=== PATIENT | female | born 1990 | race Caucasian/White ===

== ENCOUNTER 2016-11-12 18:27 | Emergency (ER) | payer BC, OTHER ==
[2016-11-12 19:35] VITALS: RESP 18
[2016-11-12] MEDS ORDERED: IPRATROPIUM-ALBUTEROL 3 ML NEB INHALATION STA (19:45)
[2016-11-12] MEDS ORDERED: ONDANSETRON 4 MG/2 ML VIAL IVP STA (19:46)
[2016-11-12] MEDS ORDERED: SODIUM CHLORIDE 0.9% 1,000 ML IV ONE (19:47)
[2016-11-12] MEDS ORDERED: KETOROLAC 30 MG/ML 1 ML VIAL IVP STA (19:53)
--- NOTE | 2016-11-12 19:53 | ED ---
URI HPI - General Chief Complaint: Upper Respiratory Infection Stated Complaint: cough, nausea, dizziness Time Seen by Provider: 11/12/16 19:35 Source: patient, family, RN notes reviewed Mode of arrival: ambulatory Limitations: no limitations - History of Present Illness Initial Comments: Patient is a 26-year-old female presenting to the with chief complaint of cough for 1 month. She also reports "felt increased nausea and has an epigastric abdominal pain. She reports that she feels fatigued and dehydrated. She denies any vomiting or diarrhea. She reports that she was able to eat some chicken soup today. She states that she has not seen a primary care provider for this cough. She denies any specific fevers. Patient denies any recent fever, chills, shortness of breath, chest pain, back pain, abdominal pain , nausea vomiting, numbness or tingling, dysuria or hematuria, constipation or diarrhea, headaches or visual changes, or any other current symptoms Patient is anon smoker, denies past medical history despite depression. - Related Data Home Medications Medication Instructions Recorded Confirmed Citalopram Hydrobromide [CeleXA] 40 mg PO HS 01/07/16 11/12/16 Previous Rx's Medication Instructions Recorded Albuterol Inhaler [Ventolin Hfa 1 - 2 puff INHALATION Q6HR PRN #1 11/12/16 Inhaler] inhaler Azithromycin [Zithromax Z-pack] 250 mg PO DIRECTED #6 tab 11/12/16 Ondansetron [Zofran] 4 mg PO Q8HR PRN #8 tab 11/12/16 methylPREDNISolone Dose Pack 4 mg PO DIRECTED #21 package 11/12/16 [Medrol Dose Pack] Allergies Allergy/AdvReac Type Severity Reaction Status Date / Time No Known Allergies Allergy Verified 11/12/16 19:46 Review of Systems ROS Statement: Those systems with pertinent positive or pertinent negative responses have been documented in the HPI. ROS Other: All systems not noted in ROS Statement are negative. Past Medical History Past Medical History: No Reported History History of Any Multi-Drug Resistant Organisms: None Reported Past Surgical History: Section Past Psychological History: Anxiety, Depression Smoking Status: Never smoker Past Alcohol Use History: Occasional Past Drug Use History: None Reported General Exam - General Exam Comments Initial Comments: Well appearing 26 year old female in no acute distress. Limitations: no limitations General appearance: alert, in no apparent distress Head exam: Present: atraumatic, normocephalic, normal inspection Eye exam: Present: normal appearance, PERRL, EOMI. Absent: scleral icterus, conjunctival injection, periorbital swelling ENT exam: Present: normal exam, mucous membranes moist Neck exam: Present: normal inspection. Absent: tenderness, meningismus, lymphadenopathy Respiratory exam: Present: normal lung sounds bilaterally, wheezes (possible mild wheeze over right lung base). Absent: respiratory distress, rales, rhonchi , stridor Cardiovascular Exam: Present: regular rate, normal rhythm, normal heart sounds. Absent: systolic murmur, diastolic murmur, rubs, gallop, clicks GI/Abdominal exam: Present: soft, tenderness (epigastric tenderness. ), normal bowel sounds. Absent: distended, guarding, rebound, rigid Extremities exam: Present: normal inspection, full ROM, normal capillary refill. Absent: tenderness, pedal edema, joint swelling, calf tenderness Back exam: Present: normal inspection, tenderness Neurological exam: Present: alert, oriented X3, CN II-XII intact Psychiatric exam: Present: normal affect, normal mood Skin exam: Present: warm, dry, intact, normal color. Absent: rash Course Vital Signs 11/12/16 11/12/16 11/12/16 19:33 20:10 20:20 Temperature 98.8 F Pulse Rate 81 80 88 Respiratory 18 Rate Blood Pressure 117/72 O2 Sat by Pulse 98 Oximetry 11/12/16 21:28 Temperature 98.0 F Pulse Rate 72 Respiratory 18 Rate Blood Pressure 122/61 O2 Sat by Pulse 100 Oximetry Medical Decision Making - Medical Decision Making PAtient is a 26 year old with one month of productive cough, and one day of epigastric abdominal pain and nausea. Labs were negative, KUB and CXR are negative Patient given 1 L saline bolus and breathing treatment. Patient reports that she is feeling better after receiving fluids and breathing treatment. Patient will be started on Zpak and steroids for her cough. Advised to follow up with PCP in one to two days. Patient understands treatment plan and return parameters discussed, - Lab Data Result diagrams: 11/12/16 20:20 11/12/16 20:20 Lab Results 11/12/16 11/12/16 11/12/16 Range/Units 20:20 20:20 20:30 WBC 8.0 (3.8-10.6) k/uL RBC 4.90 (3.80-5.40) m/uL Hgb 11.7 (11.4-16.0) gm/dL Hct 36.8 (34.0-46.0) % MCV 75.1 L (80.0-100.0) fL MCH 23.9 L (25.0-35.0) pg MCHC 31.8 (31.0-37.0) g/dL RDW 15.7 H (11.5-15.5) % Plt Count 255 (150-450) k/uL Neutrophils % 69 % Lymphocytes % 17 % Monocytes % 9 % Eosinophils % 2 % Basophils % 0 % Neutrophils # 5.5 (1.3-7.7) k/uL Lymphocytes # 1.4 (1.0-4.8) k/uL Monocytes # 0.7 (0-1.0) k/uL Eosinophils # 0.1 (0-0.7) k/uL Basophils # 0.0 (0-0.2) k/uL Microcytosis Slight Sodium 141 (137-145) mmol/L Potassium 4.0 (3.5-5.1) mmol/L Chloride 105 (98-107) mmol/L Carbon Dioxide 24 (22-30) mmol/L Anion Gap 12 mmol/L BUN 13 (7-17) mg/dL Creatinine 0.80 (0.52-1.04) mg/dL Est GFR (MDRD) Af Amer >60 (>60 ml/min/1.73 sqM) Est GFR (MDRD) Non-Af >60 (>60 ml/min/1.73 sqM) Glucose 93 (74-99) mg/dL Calcium 9.3 (8.4-10.2) mg/dL Total Bilirubin 0.4 (0.2-1.3) mg/dL AST 18 (14-36) U/L ALT 30 (9-52) U/L Alkaline Phosphatase 74 (38-126) U/L Total Protein 7.6 (6.3-8.2) g/dL Albumin 4.2 (3.5-5.0) g/dL Lipase 50 (23-300) U/L Urine HCG, Qual Not Detected (Not Detectd) - Radiology Data Radiology results: report reviewed CXR was reviewed to be normal, no pneumonia or pleural effusion. KUB shows normal gas pattern. Disposition Clinical Impression: Cough, Nausea Disposition: HOME SELF-CARE Condition: Good Instructions: Upper Respiratory Infection (ED), Acute Bronchitis (ED) Additional Instructions: instructed to rest, increase fluids and completely antibiotic prescription. All with primary care symptoms continue to persist after antibiotic treatment. Return to the [facility] if any alarming signs or symptoms occur. Prescriptions: Albuterol Inhaler [Ventolin Hfa Inhaler] 1 - 2 puff INHALATION Q6HR PRN #1 inhaler PRN Reason: Shortness Of Breath Azithromycin [Zithromax Z-pack] 250 mg PO DIRECTED #6 tab Ondansetron [Zofran] 4 mg PO Q8HR PRN #8 tab PRN Reason: Nausea And Vomiting methylPREDNISolone Dose Pack [Medrol Dose Pack] 4 mg PO DIRECTED #21 package Referrals: Perico Carney III, MD [Primary Care Provider] - 1-2 days Time of Disposition: 21:08
[2016-11-12 20:28] LABS: Basophils % (A) 0 %; CH 24.7; CHCM 33.1; Eosinophils # (A) 0.1 k/uL (0-0.7); Eosinophils % (A) 2 %; HCT 36.8 % (34.0-46.0); HDW 3.18; HGB 11.7 gm/dL (11.4-16.0); Luc # (Auto) 0.24; Luc % (Auto) 3; Lymphocytes # (A) 1.4 k/uL (1.0-4.8); Lymphocytes % (A) 17 %; MCH 23.9 pg (25.0-35.0); MCHC 31.8 g/dL (31.0-37.0); MCV 75.1 fL (80.0-100.0); Mean Platelet Volume 8.5; Microcytosis Slight; Monocytes # (A) 0.7 k/uL (0-1.0); Monocytes % (A) 9 %; Neutrophils # (A) 5.5 k/uL (1.3-7.7); Neutrophils % (A) 69 %; RDW 15.7 % (11.5-15.5); WBC (Perox) 8.14
[2016-11-12 20:41] LABS: ALT 30 U/L (9-52); AST 18 U/L (14-36); Alkaline Phosphatase 74 U/L (38-126); Anion Gap 12 mmol/L; Blood Urea Nitrogen 13 mg/dL (7-17); Calcium 9.3 mg/dL (8.4-10.2); Carbon Dioxide 24 mmol/L (22-30); Chloride 105 mmol/L (98-107); Glucose 93 mg/dL (74-99); Non-African American GFR(MDRD) >60 (>60 ml/min/1.73 sqM); Sodium 141 mmol/L (137-145); Total Bilirubin 0.4 mg/dL (0.2-1.3); Total Protein 7.6 g/dL (6.3-8.2)
--- NOTE | 2016-11-12 21:02 | XR ---
EXAMINATION TYPE: XR chest 2V DATE OF EXAM: 11/12/2016 8:56 PM COMPARISON: EXAMINATION TYPE: XR chest 2V DATE OF EXAM: 11/12/2016 8:56 PM COMPARISON: 01/23/2016 HISTORY: Cough TECHNIQUE: Frontal and lateral views of the chest are obtained. FINDINGS: Heart and mediastinum are normal. Lungs are clear. Diaphragm is normal. Bony thorax and so ft tissues appear normal. IMPRESSION: Normal chest. No change.
--- NOTE | 2016-11-12 21:03 | XR ---
EXAMINATION TYPE: XR KUB DATE OF EXAM: 11/12/2016 8:57 PM COMPARISON: 01/07/2016 HISTORY: Nausea. Abdominal pain. TECHNIQUE: 2 views FINDINGS: Bowel gas pattern is normal. There is no sign of intestinal obstruction or pneumoperitoneum . Fecal pattern is normal. Lung bases are clear. There are no pathologic calcifications over the kidn eys. IMPRESSION: Nonacute abdomen. No change.
[2016-11-12] MEDS ORDERED: MAG HYDROX/AL HYDROX/SIMETH 30 ML, HYOSCYAMINE ELIXIR 10 ML, CIMETIDINE HCL 300 MG PO STA ×3 (21:14)
[2016-11-12 21:29] VITALS: BP 122/61; PULSE 72; TEMP 98
== END 2016-11-12 21:28 | disposition home or self-care (01) ==
LOC: EC 18:27
DX: R11.0 Nausea (principal); R05 Cough; R10.13 Epigastric pain; Z79.899 Other long term (current) drug therapy; F32.9 Major depressive disorder, single episode, unspecified
CPT/HCPCS: 96374; 96375; 96361; 99284; 36415; 94640; 80053; 83690; 85025; 81025; 71020; 74000; J2405; J1885

== ENCOUNTER 2017-04-06 22:39 | Emergency (ER) | payer BC ==
[2017-04-06 23:17] VITALS: BP 131/77; PULSE 77; RESP 16; TEMP 98.4
[2017-04-06] MEDS ORDERED: SODIUM CHLORIDE 0.9% 500 ML IV STA (23:31)
[2017-04-06] MEDS ORDERED: FAMOTIDINE 20 MG/2 ML VIAL IV STA (23:32)
[2017-04-07 00:01] LABS: Basophils # (A) 0.1 k/uL (0-0.2); Basophils % (A) 1 %; CH 23.6; CHCM 32.5; Eosinophils # (A) 0.2 k/uL (0-0.7); Eosinophils % (A) 2 %; HCT 35.9 % (34.0-46.0); HDW 3.27; HGB 11.6 gm/dL (11.4-16.0); Hypochromasia Slight; Luc # (Auto) 0.33; Luc % (Auto) 3; Lymphocytes # (A) 3.1 k/uL (1.0-4.8); Lymphocytes % (A) 31 %; MCH 23.6 pg (25.0-35.0); MCHC 32.2 g/dL (31.0-37.0); MCV 73.1 fL (80.0-100.0); Mean Platelet Volume 6.9; Microcytosis Slight; Monocytes # (A) 0.7 k/uL (0-1.0); Monocytes % (A) 7 %; Neutrophils # (A) 5.6 k/uL (1.3-7.7); Neutrophils % (A) 57 %; RBC 4.92 m/uL (3.80-5.40); RDW 15.8 % (11.5-15.5); WBC 9.9 k/uL (3.8-10.6)
[2017-04-07 00:13] LABS: Appearance,Urine Cloudy (Clear); Bacteria,Urine Rare /hpf; Bilirubin,Urine Negative (Negative); Glucose,Urine (UA) Negative (Negative); Ketones,Urine Negative (Negative); Leukocyte Esterase,Urine Small (Negative); Mucus,Urine Rare /hpf; Nitrite,Urine Negative (Negative); PH, Urine 6.5 (5.0-8.0); Particle Count 10559; Protein,Urine Negative (Negative); RBC,Urine 3 /hpf (0-5); Specific Gravity,Urine 1.015 (1.001-1.035); Squamous Epithelial Cell,Urine 5 /hpf (0-4); UA Billing (MACRO vs. MICRO) MICRO; Urobilinogen,Urine <2.0 mg/dL (<2.0); WBC,Urine 27 /hpf (0-5)
[2017-04-07 00:14] LABS: ALT 29 U/L (9-52); AST 19 U/L (14-36); Alkaline Phosphatase 80 U/L (38-126); Anion Gap 10 mmol/L; Blood Urea Nitrogen 12 mg/dL (7-17); Calcium 9.9 mg/dL (8.4-10.2); Carbon Dioxide 24 mmol/L (22-30); Chloride 108 mmol/L (98-107); Glucose 86 mg/dL (74-99); Non-African American GFR(MDRD) >60 (>60 ml/min/1.73 sqM); Potassium 4.2 mmol/L (3.5-5.1); Sodium 142 mmol/L (137-145); Total Bilirubin 0.3 mg/dL (0.2-1.3); Total Protein 7.3 g/dL (6.3-8.2)
[2017-04-07] MEDS ORDERED: NITROFURANTOIN MONOHYD/M-CRYST 100 MG CAP PO STA (00:48)
--- NOTE | 2017-04-07 01:00 | ED ---
Abdominal Pain HPI - General Chief Complaint: Abdominal Pain Stated Complaint: abdominal & back pain Time Seen by Provider: 04/06/17 23:15 Source: patient Mode of arrival: ambulatory Limitations: no limitations - History of Present Illness MD Complaint: abdominal pain - Related Data Home Medications Medication Instructions Recorded Confirmed Citalopram Hydrobromide [CeleXA] 40 mg PO HS 01/07/16 11/12/16 Previous Rx's Medication Instructions Recorded Albuterol Inhaler [Ventolin Hfa 1 - 2 puff INHALATION Q6HR PRN #1 11/12/16 Inhaler] inhaler Azithromycin [Zithromax Z-pack] 250 mg PO DIRECTED #6 tab 11/12/16 Ondansetron [Zofran] 4 mg PO Q8HR PRN #8 tab 11/12/16 methylPREDNISolone Dose Pack 4 mg PO DIRECTED #21 package 11/12/16 [Medrol Dose Pack] Nitrofurantoin Monohyd/M-Cryst 100 mg PO Q12HR #14 cap 04/07/17 [Macrobid] Ondansetron Odt [Zofran Odt] 4 mg PO Q6HR PRN #20 tab 04/07/17 Allergies Allergy/AdvReac Type Severity Reaction Status Date / Time No Known Allergies Allergy Verified 11/12/16 19:46 Review of Systems ROS Statement: Those systems with pertinent positive or pertinent negative responses have been documented in the HPI. ROS Other: All systems not noted in ROS Statement are negative. Past Medical History Past Medical History: No Reported History History of Any Multi-Drug Resistant Organisms: None Reported Past Surgical History: Section Past Psychological History: Anxiety, Depression Smoking Status: Never smoker Past Alcohol Use History: Occasional Past Drug Use History: None Reported General Exam - General Exam Comments Initial Comments: Well-developed, well-nourished female in no distress Limitations: no limitations General appearance: alert, in no apparent distress Head exam: Present: atraumatic, normocephalic, normal inspection Eye exam: Present: normal appearance, PERRL, EOMI. Absent: scleral icterus, conjunctival injection, periorbital swelling ENT exam: Present: normal exam, normal oropharynx, mucous membranes moist, TM's normal bilaterally, normal external ear exam Neck exam: Present: normal inspection. Absent: tenderness, meningismus, lymphadenopathy Respiratory exam: Present: normal lung sounds bilaterally. Absent: respiratory distress, wheezes, rales, rhonchi, stridor Cardiovascular Exam: Present: regular rate, normal rhythm, normal heart sounds. Absent: systolic murmur, diastolic murmur, rubs, gallop, clicks GI/Abdominal exam: Present: soft, tenderness (Mild tenderness to the right upper quadrant.), normal bowel sounds. Absent: distended, guarding, rebound, rigid Extremities exam: Present: normal inspection, full ROM, normal capillary refill. Absent: tenderness, pedal edema, joint swelling, calf tenderness Back exam: Present: normal inspection. Absent: CVA tenderness (R), CVA tenderness (L) Neurological exam: Present: alert, oriented X3, CN II-XII intact Psychiatric exam: Present: normal affect, normal mood Skin exam: Present: warm, dry, intact, normal color. Absent: rash Course Vital Signs 04/06/17 23:15 Temperature 98.4 F Pulse Rate 77 Respiratory 16 Rate Blood Pressure 131/77 O2 Sat by Pulse 100 Oximetry - Reevaluation(s) Reevaluation #1: 04/07/17 00:58 Patient reexamined is resting comfortably in bed. Patient has no nausea or vomiting here in the ER. Pain is negligible at this time. Patient does not appear to be ill or toxic. Patient stable. Medical Decision Making - Lab Data Result diagrams: 04/06/17 23:40 04/06/17 23:40 Lab Results 04/06/17 04/06/17 04/06/17 Range/Units 23:40 23:40 23:40 WBC 9.9 (3.8-10.6) k/uL RBC 4.92 (3.80-5.40) m/uL Hgb 11.6 (11.4-16.0) gm/dL Hct 35.9 (34.0-46.0) % MCV 73.1 L (80.0-100.0) fL MCH 23.6 L (25.0-35.0) pg MCHC 32.2 (31.0-37.0) g/dL RDW 15.8 H (11.5-15.5) % Plt Count 302 (150-450) k/uL Neutrophils % 57 % Lymphocytes % 31 % Monocytes % 7 % Eosinophils % 2 % Basophils % 1 % Neutrophils # 5.6 (1.3-7.7) k/uL Lymphocytes # 3.1 (1.0-4.8) k/uL Monocytes # 0.7 (0-1.0) k/uL Eosinophils # 0.2 (0-0.7) k/uL Basophils # 0.1 (0-0.2) k/uL Hypochromasia Slight Microcytosis Slight Sodium 142 (137-145) mmol/L Potassium 4.2 (3.5-5.1) mmol/L Chloride 108 H (98-107) mmol/L Carbon Dioxide 24 (22-30) mmol/L Anion Gap 10 mmol/L BUN 12 (7-17) mg/dL Creatinine 0.90 (0.52-1.04) mg/dL Est GFR (MDRD) Af Amer >60 (>60 ml/min/1.73 sqM) Est GFR (MDRD) Non-Af >60 (>60 ml/min/1.73 sqM) Glucose 86 (74-99) mg/dL Calcium 9.9 (8.4-10.2) mg/dL Total Bilirubin 0.3 (0.2-1.3) mg/dL AST 19 (14-36) U/L ALT 29 (9-52) U/L Alkaline Phosphatase 80 (38-126) U/L Total Protein 7.3 (6.3-8.2) g/dL Albumin 4.3 (3.5-5.0) g/dL Lipase 66 (23-300) U/L Urine Color Light Yellow Urine Appearance Cloudy H (Clear) Urine pH 6.5 (5.0-8.0) Ur Specific [place] 1.015 (1.001-1.035) Urine Protein Negative (Negative) Urine Glucose (UA) Negative (Negative) Urine Ketones Negative (Negative) Urine Blood Negative (Negative) Urine Nitrite Negative (Negative) Urine Bilirubin Negative (Negative) Urine Urobilinogen <2.0 (<2.0) mg/dL Ur Leukocyte Esterase Small H (Negative) Urine RBC 3 (0-5) /hpf Urine WBC 27 H (0-5) /hpf Ur Squamous Epith Cells 5 H (0-4) /hpf Urine Bacteria Rare H (None) /hpf Urine Mucus Rare H (None) /hpf Disposition Clinical Impression: Right upper quadrant abdominal pain, Urinary tract infection Narrative: Patient likely has biliary colic related to gallbladder disease. We'll order an outpatient gallbladder ultrasound. Disposition: HOME SELF-CARE Condition: Stable Instructions: Biliary Colic (ED), Urinary Tract Infection in Women (ED) Additional Instructions: Return to the ER at once if the symptoms worsen or problems or difficulties arise. Finish the antibiotics as directed. Adhere to the gallbladder related to diet. Follow-up with the surgeon as directed. Prescriptions: Nitrofurantoin Monohyd/M-Cryst [Macrobid] 100 mg PO Q12HR #14 cap Ondansetron Odt [Zofran Odt] 4 mg PO Q6HR PRN #20 tab PRN Reason: Nausea Referrals: Perico Carney III, MD [Primary Care Provider] - 04/09/[address] DO [Doctor of Osteopathic Medicine] - 04/09/17 Time of Disposition: 00:51
== END 2017-04-07 01:13 | disposition home or self-care (01) ==
LOC: EC 22:39
DX: R10.11 Right upper quadrant pain (principal); N39.0 Urinary tract infection, site not specified; F32.9 Major depressive disorder, single episode, unspecified; Z79.899 Other long term (current) drug therapy
CPT/HCPCS: 36415; 80053; 81001; 83690; 85025; 96361; 96374; 99284

== ENCOUNTER 2017-04-08 15:43 | Emergency (ER) | payer BC ==
[2017-04-08 15:58] VITALS: TEMP 98.1
[2017-04-08] MEDS ORDERED: ONDANSETRON ODT 4 MG TAB PO STA (16:44)
[2017-04-08] MEDS ORDERED: HYDROcodone/APAP 5-325MG 1 EACH TAB PO STA (16:44)
--- NOTE | 2017-04-08 16:49 | ED ---
General Adult HPI - General Chief complaint: Abdominal Pain Stated complaint: gallbladder problems-revisit Time Seen by Provider: 04/08/17 16:40 Source: patient, RN notes reviewed, old records reviewed Mode of arrival: ambulatory Limitations: no limitations - History of Present Illness Initial comments: This is a 26-year-old female here for evaluation. Patient is presenting here today for evaluation about pain right upper quadrant abdominal pain epigastric about a. Mild nausea no vomiting. Worse after eating. Patient was seen here 2 days ago diagnosed with UTI and has been taking medications as appropriate. No fevers. Patient has had positive , but recent tubal ligation. No other pain in her abdomen, although pain his right upper quadrant - Related Data Home Medications Medication Instructions Recorded Confirmed Citalopram Hydrobromide [CeleXA] 40 mg PO HS 04/08/17 04/08/17 Allergies Allergy/AdvReac Type Severity Reaction Status Date / Time No Known Allergies Allergy Verified 04/08/17 17:10 Review of Systems ROS Statement: Those systems with pertinent positive or pertinent negative responses have been documented in the HPI. ROS Other: All systems not noted in ROS Statement are negative. Past Medical History Past Medical History: No Reported History History of Any Multi-Drug Resistant Organisms: None Reported Past Surgical History: Section Past Psychological History: Anxiety, Depression Smoking Status: Never smoker Past Alcohol Use History: Occasional Past Drug Use History: None Reported General Exam Limitations: no limitations General appearance: alert, in no apparent distress Head exam: Present: atraumatic, normocephalic, normal inspection Eye exam: Present: normal appearance, PERRL, EOMI. Absent: scleral icterus, conjunctival injection, periorbital swelling ENT exam: Present: normal exam, mucous membranes moist Neck exam: Present: normal inspection. Absent: tenderness, meningismus, lymphadenopathy Respiratory exam: Present: normal lung sounds bilaterally. Absent: respiratory distress, wheezes, rales, rhonchi, stridor Cardiovascular Exam: Present: regular rate, normal rhythm, normal heart sounds. Absent: systolic murmur, diastolic murmur, rubs, gallop, clicks GI/Abdominal exam: Present: soft, tenderness (Right upper quadrant), normal bowel sounds. Absent: distended, guarding, rebound, rigid Extremities exam: Present: normal inspection, full ROM, normal capillary refill. Absent: tenderness, pedal edema, joint swelling, calf tenderness Back exam: Present: normal inspection Neurological exam: Present: alert, oriented X3, CN II-XII intact Psychiatric exam: Present: normal affect, normal mood Skin exam: Present: warm, dry, intact, normal color. Absent: rash Course Vital Signs 04/08/17 15:56 Temperature 98.1 F Pulse Rate 78 Respiratory 20 Rate Blood Pressure 137/69 O2 Sat by Pulse 100 Oximetry Medical Decision Making - Medical Decision Making 26 [address] F reevaluation without pain or upper quadrant bowel pain, positive hemangioma on the liver, otherwise pain is controlled at this time patient can be discharged - Radiology Data Radiology results: report reviewed (Ultrasound shows hemangioma on the liver), image reviewed Disposition Clinical Impression: Right upper quadrant abdominal pain Disposition: HOME SELF-CARE Condition: Good Instructions: Abdominal Pain (ED) Referrals: Perico Carney III, MD [Primary Care Provider] - 1-2 days
--- NOTE | 2017-04-08 17:24 | US ---
EXAMINATION TYPE: US gallbladder DATE OF EXAM: 04/08/2017 COMPARISON: US and CT CLINICAL HISTORY: Pain. RUQ pain EXAM MEASUREMENTS: Liver Length: 17.8 cm Gallbladder Wall: 0.2 cm CBD: 0.3 cm Right Kidney: 10.8 x 3.5 x 5.1 cm Pancreas: wnl Liver: Echogenic area just anterior to GB normal right kidney. = 1.5 x 0.7 x 1.4 cm, ?etiology, othe rwise appeared wnl Gallbladder: wnl Evidence for sonographic Solano's sign: No CBD: wnl Right Kidney: wnl IMPRESSION: There is a lobulated hyperechoic area that measures 1.5 x 0.7 cm consistent with hemangio ma in the anterior liver. No gallstones or dilated ducts.
[2017-04-08 17:58] VITALS: BP 118/70; PULSE 81; RESP 18
== END 2017-04-08 17:57 | disposition home or self-care (01) ==
LOC: EC 15:43
DX: D18.03 Hemangioma of intra-abdominal structures (principal); R11.0 Nausea; F32.9 Major depressive disorder, single episode, unspecified; Z79.899 Other long term (current) drug therapy
CPT/HCPCS: 76705; 99284

== ENCOUNTER 2017-11-13 06:34 | Day surgery (SDC) | payer BC ==
[2017-11-02 13:07] VITALS: BMI 34.3
--- NOTE | 2017-11-12 20:21 | P.HPOB ---
History of Present Illness H&P Date: 11/12/17 Chief Complaint: Menorrhagia, dysmenorrhea This is a 27-year-old female 5 para 2 who presents for dilation and curettage with hysteroscopy and NovaSure endometrial ablation secondary to menorrhagia and dysmenorrhea. She had a tubal ligation approximately 5 years ago and ever since has been having heavy menses with clotting. Her menses are coming monthly but lasting 5 days with clots. She changes approximately 2 pads per hour during the first 3 days of her menses. She also gets abdominal pain and nausea during this time. Pelvic ultrasound showed uterus measuring 10 x 5.6 x 3.6 cm. Endometrium was thickened at 17 mm. Both ovaries appeared normal. Obstetrical history: . History of 2 deliveries, and 3 miscarriages. Gynecologic history: No history of sexual transmitted diseases. She has had a tubal ligation. Her last Pap smear did show low-grade squamous intraepithelial lesion of the cervix. 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 Review of Systems Constitutional: Reports fatigue Eyes: denies bulging eye, denies pain Ears, nose, mouth and throat: Denies headache, Denies sore throat Cardiovascular: Denies chest pain, Denies shortness of breath Respiratory: Denies cough Gastrointestinal: Reports diarrhea Genitourinary: Reports dysmenorrhea, Reports dyspareunia, Reports menorrhagia, Reports pelvic pain Menstruation: Reports period heavy Musculoskeletal: Denies myalgias Integumentary: Denies pruritus, Denies rash Neurological: Reports numbness Psychiatric: Reports anxiety, Reports change in libido, Reports depression, Reports insomnia Past Medical History Past Medical History: No Reported History Additional Past Medical History / Comment(s): IRREGULAR MENSES WITH BLOOD CLOTS History of Any Multi-Drug Resistant Organisms: None Reported Past Surgical History: Section, Tubal Ligation Additional Past Surgical History / Comment(s): C-SEC X 2 Past Anesthesia/Blood Transfusion Reactions: No Reported Reaction Past Psychological History: Anxiety, Depression Smoking Status: Never smoker Past Alcohol Use History: Occasional Past Drug Use History: None Reported - Past Family History Mother Family Medical History: No Reported History Medications and Allergies Home Medications Medication Instructions Recorded Confirmed Type Citalopram Hydrobromide [CeleXA] 40 mg PO DAILY 04/08/17 11/02/17 History ALPRAZolam [Xanax] 0.25 mg PO DAILY PRN 11/02/17 11/02/17 History Allergies Allergy/AdvReac Type Severity Reaction Status Date / Time No Known Allergies Allergy Verified 11/02/17 13:03 Exam Osteopathic Statement: *. No significant issues noted on an osteopathic structural exam other than those noted in the History and Physical/Consult. HEENT: Within normal limits Heart: Regular rate and rhythm Lungs: Clear to auscultation bilaterally Abdomen: Soft, nontender Pelvic exam: Uterus is anteverted, nontender, with no adnexal masses or tenderness noted. Extremities: Negative Homans Assessment and Plan (1) Menorrhagia with regular cycle Status: Acute Code(s): N92.0 - EXCESSIVE AND FREQUENT MENSTRUATION WITH REGULAR CYCLE SNOMED Code(s): 414398561 (2) Dysmenorrhea Status: Acute Code(s): N94.6 - DYSMENORRHEA, UNSPECIFIED SNOMED Code(s): 606780659 Plan: Proceed with dilation and curettage with hysteroscopy and NovaSure endometrial ablation. I have discussed the risks, benefits, and alternative therapies for the above- mentioned procedure and for both sedation/anesthesia as well as necessary blood products administration, if indicated, as they pertain to this patient. The patient has indicated her understanding and acceptance of the risks and procedures discussed.
[~2017-11-13 06:34] MED LIST: DEXAMETHASONE SOD PHOSPHATE 10 MG/ML 1 ML VIAL IV ONE; LACTATED RINGERS 1,000 ML IV SCH; LIDOCAINE 1% 20 ML VIAL (10MG/ML) FOR IV START INTRADERMA PRN; MIDAZOLAM 2 MG/2 ML VIAL IV PRN; Pre Op ABX Message 1 EACH MISC MISCELLANE ONE; SCOPOLAMINE 1.5MG/72HR PATCH TRANSDERM ONE
[2017-11-13] MEDS: ONDANSETRON 4 MG/2 ML VIAL IVP ONE ×2 (06:57→08:14)
[2017-11-13] MEDS ORDERED: PROPOFOL 10 MG/ML 20 ML VIAL IV ONE (07:33)
[2017-11-13] MEDS ORDERED: MIDAZOLAM 2 MG/2 ML VIAL ONE (07:33)
[2017-11-13] MEDS ORDERED: fentaNYL (PF) 50 MCG/ML 2 ML AMP ONE (07:33)
[2017-11-13] MEDS ORDERED: KETOROLAC 30 MG/ML 1 ML VIAL ONE (07:33)
[2017-11-13] MEDS ORDERED: LIDOCAINE 1% INJ 10MG/ML (20 ML MDV) ONE (07:33)
--- NOTE | 2017-11-13 08:02 | P.OP ---
Date of Procedure: 11/13/17 Preoperative Diagnosis: Menorrhagia, dysmenorrhea Postoperative Diagnosis: Same Procedure(s) Performed: Hysteroscopy with dilation and curettage and NovaSure endometrial ablation Anesthesia: other (LMA general) Surgeon: Danita Conrad Estimated Blood Loss (ml): 10 Pathology: other (Endometrial curettings) Condition: stable Disposition: same day Indications for Procedure: This is a 27-year-old female 5 para 2 who presents for dilation and curettage with hysteroscopy and NovaSure endometrial ablation secondary to menorrhagia and dysmenorrhea. She had a tubal ligation approximately 5 years ago and ever since has been having heavy menses with clotting. Her menses are coming monthly but lasting 5 days with clots. She changes approximately 2 pads per hour during the first 3 days of her menses. She also gets abdominal pain and nausea during this time. Pelvic ultrasound showed uterus measuring 10 x 5.6 x 3.6 cm. Endometrium was thickened at 17 mm. Both ovaries appeared normal. Operative Findings: Uterus is anteverted with no adnexal masses palpated. Cervix is sounded to 5 cm and uterus is sounded to 12 cm. Upon hysteroscopy, a dyssynchronous endometrial pattern was noted. There was a moderate amount of endometrial curettings obtained. Description of Procedure: The patient is taken to the operating room. She is placed in the dorsal lithotomy position after general anesthesia was given. She is prepped and draped in the normal sterile fashion. Bladder is drained with a catheter and then removed. Pelvic exam is performed under anesthesia. Uterus is found to be anteverted with no adnexal masses. She is placed in slight Trendelenburg position. A right angle retractor is used to visualize the cervix. The anterior lip of the cervix is grasped with a single-tooth tenaculum. Cervix is sounded to 5 cm. Uterus is sounded to 12 cm. Cervix is gently dilated with Rae dilators until a hysteroscope could be passed. Hysteroscopy is performed using normal saline. The above noted findings are noted. Next a polyp forceps is introduced. A moderate amount of tissue was obtained. Next medium-sized size sharp curette was placed. A moderate amount of endometrial curettings were obtained. Next NovaSure array was inserted into the endometrial cavity. Length was set at 6.5 cm and width was determined to be 4.5 cm. Next cavity assessment was completed and passed on the first try. Next NovaSure array was fired at 161 W for 72 seconds. Next the array was removed, inspected and then discarded. Next the hysteroscope was reinserted. Uniform charring was noted. Pictures were taken. Hysteroscope was removed. Single-tooth tenaculum was removed from the anterior lip of the cervix. Minimal bleeding was noted. All other instruments removed from the vagina. Sponge counts were correct. Patient is taken to recovery room in stable condition.
[2017-11-13] MEDS: HYDROmorphone 0.5 MG/0.5 ML SYRINGE IVP PRN ×4 (08:14→08:27)
[2017-11-13 08:17] VITALS: TEMP 97.4
[2017-11-13] MEDS: MEPERIDINE 50 MG/ML SYRINGE IVP ONE ×2 (08:32→08:38)
[2017-11-13 09:55] VITALS: BP 104/62; PULSE 62; RESP 18
== END 2017-11-13 10:11 | disposition home or self-care (01) ==
LOC: OR 06:34
PROVIDERS: ATTEND Obstetrics & Gynecology
DX: N92.0 Excessive and frequent menstruation with regular cycle (principal); N94.6 Dysmenorrhea, unspecified; F32.9 Major depressive disorder, single episode, unspecified; F41.9 Anxiety disorder, unspecified; Z79.899 Other long term (current) drug therapy; Z98.51 Tubal ligation status
CPT/HCPCS: 58563; 81025; 88305; J2250; J1100; J2175; J2405; J2001; J3010; J1885; J2704; J1170

== ENCOUNTER 2018-01-15 12:39 | Day surgery (SDC) | payer BC ==
[2018-01-14 14:03] VITALS: BMI 34.3
[~2018-01-15 12:39] MED LIST changes: -DEXAMETHASONE SOD PHOSPHATE 10 MG/ML 1 ML VIAL IV ONE; -MIDAZOLAM 2 MG/2 ML VIAL IV PRN; -Pre Op ABX Message 1 EACH MISC MISCELLANE ONE; -SCOPOLAMINE 1.5MG/72HR PATCH TRANSDERM ONE
[2018-01-15 13:13] VITALS: TEMP 98.4
[2018-01-15] MEDS ORDERED: MIDAZOLAM 2 MG/2 ML VIAL ONE (13:32)
[2018-01-15] MEDS ORDERED: PROPOFOL 10 MG/ML 20 ML VIAL IV ONE (13:32)
[2018-01-15] MEDS ORDERED: fentaNYL (PF) 50 MCG/ML 2 ML AMP ONE (13:32)
--- NOTE | 2018-01-15 14:05 | P.PCN ---
Date of Procedure: 01/15/18 Procedure(s) Performed: Procedure: Colonoscopy and biopsy. Preoperative diagnosis: Change in bowel habits. Postoperative diagnosis: 1. Exam of the colon and terminal ileum within normal limits. 2. Biopsies obtained from the terminal ileum and random colon. Preparation: HalfLytely prep. Sedation: Was provided by anesthesia. Brief clinical history: The patient is a 27-year-old female who has been experiencing diarrhea for the last 4 weeks or so. Stool studies were negative. This evaluation is requested for possible inflammatory bowel disease or other pathology. Procedure: With the patient on her left lateral decubitus position and after informed consent and adequate sedation, the perianal area was inspected and it did not show any fissures or fistulas. There were no masses felt on digital rectal examination. The Olympus CFQ 160L video colonoscope was then inserted in the rectum in the usual fashion and advanced to the cecum. I intubated the ileocecal valve and examined the terminal ileum. Terminal ileum and colon appeared healthy with no edema, erythema, friability, ulceration, exudation or spontaneous bleeding. No polyps or tumors were seen or any obvious diverticular disease or other pathology. I retroflexed the endoscope in the rectum before the endoscope was withdrawn. I also obtained biopsies from the terminal ileum and randomly from the colon before the endoscope was withdrawn. The patient tolerated the procedure well. Plan: The patient was reassured. Will await pathology results. Further plans can be made based on her course and biopsy results. She will follow-up with you as planned and I would be happy to see in the office of her symptoms persist.
[2018-01-15 14:39] VITALS: BP 128/76; PULSE 69; RESP 18
== END 2018-01-15 14:51 | disposition home or self-care (01) ==
LOC: ORWHC2ENDO 12:39
DX: R19.4 Change in bowel habit (principal); F41.9 Anxiety disorder, unspecified; Z79.899 Other long term (current) drug therapy
CPT/HCPCS: 45380; 81025; 88305; J2250; J3010; J2704

== ENCOUNTER → 2018-01-30 | Outpatient (CLI) | payer BC ==
--- NOTE | 2018-01-30 07:52 | US ---
EXAMINATION TYPE: US abdomen complete DATE OF EXAM: 01/30/2018 COMPARISON: NONE CLINICAL HISTORY: 27-year-old female R10.11 RUQ pain R19.7 Diarrhea. Digestion issues Technique: Multiple sonographic images of the abdomen are obtained. FINDINGS: Liver Length: 17.9 cm Gallbladder Wall: 0.2 cm CBD: 4.6 mm Spleen: 10.5 cm Right Kidney: 10.0 x 5.5 x 3.9 cm Left Kidney: 12.2 x 4.3 x 5.2 cm Pancreas: wnl Liver: Borderline enlarged. Slight increased echogenicity. Some focal fatty sparing along the gallb ladder fossa. Gallbladder: wnl Evidence for sonographic Solano's sign: no CBD: wnl Spleen: wnl Right Kidney: No hydronephrosis Left Kidney: No hydronephrosis Upper IVC: wnl Abd Aorta: wnl IMPRESSION: Borderline hepatomegaly and mild hepatic steatosis. Correlate with LFTs, lipid profile, and patient r isk factors.
== END | disposition home or self-care (01) ==
LOC: RADUSWWP 06:52
PROVIDERS: ATTEND Family Medicine
DX: K76.0 Fatty (change of) liver, not elsewhere classified (principal); R16.0 Hepatomegaly, not elsewhere classified
CPT/HCPCS: 76700

== ENCOUNTER → 2018-04-11 | Outpatient (CLI) | payer BC ==
--- NOTE | 2018-04-11 09:09 | NM ---
EXAMINATION TYPE: NM hepatobiliary w EF DATE OF EXAM: 04/11/2018 COMPARISON: NONE INDICATION: Right upper quadrant pain TECHNIQUE: After the intravenous administration of 4.97 mCi Tc 99m Mebrofenin hepatobiliary scintigra phy is performed. Images were obtained immediately post injection. FINDINGS: There is prompt uptake and excretion of radiotracer by the liver. Extrahepatic ducts are identified at 10 minutes. The gallbladder is visualized within 10 minutes. Small bowel activity is noted within 18 minutes. At one hour 8 ounces of oral ensure plus is given to mimic CCK and gallbladder ejection fraction is c alculated at 77 %, which is in the normal range. (Normal >35% and <80%.). IMPRESSION: 1. Normal hepatobiliary scan
== END | disposition home or self-care (01) ==
LOC: RADNMMAIN 06:51
PROVIDERS: ATTEND Family Medicine
DX: R10.11 Right upper quadrant pain (principal)
CPT/HCPCS: 78226; A9537

== ENCOUNTER 2018-12-22 18:53 | Emergency (ER) | payer BC ==
[2018-12-22] MEDS ORDERED: SODIUM CHLORIDE 0.9% 1,000 ML IV ONE (19:02)
[2018-12-22] MEDS ORDERED: ACETAMINOPHEN TAB 500 MG TAB PO STA (19:03)
--- NOTE | 2018-12-22 19:15 | ED ---
URI HPI - General Chief Complaint: Upper Respiratory Infection Stated Complaint: cough, fever Time Seen by Provider: 12/22/18 19:01 Source: patient Mode of arrival: ambulatory Limitations: no limitations - History of Present Illness Initial Comments: 28-year-old female presenting today for chief complaint of cough bodyaches chills and fever times one day. Patient states she woke up this morning with a cough feeling congested. She states she has bodyaches all over and chills. She states she was told she had fever when she came here however did not require one at home. Patient denies any sick contacts. Patient wasn't states he has a chronic cough. Remaining review of systems negative, patient denies any IVDU, shortness of breath, chest pain, back pain, abdominal pain, nausea or vomiting, numbness or tingling, dysuria or hematuria, constipation or diarrhea, headaches or visual changes, or any other complaints. Upon arrival pt appears nontoxic. VS reveal fever, elevated HR. - Related Data Previous Rx's Medication Instructions Recorded Benzonatate [Tessalon Perles] 100 mg PO TID PRN 5 Days #15 cap 12/22/18 Allergies Allergy/AdvReac Type Severity Reaction Status Date / Time No Known Allergies Allergy Verified 12/22/18 19:28 Review of Systems ROS Statement: Those systems with pertinent positive or pertinent negative responses have been documented in the HPI. ROS Other: All systems not noted in ROS Statement are negative. Past Medical History Past Medical History: No Reported History Additional Past Medical History / Comment(s): IRREGULAR MENSES WITH BLOOD CLOTS History of Any Multi-Drug Resistant Organisms: None Reported Past Surgical History: Section, Tubal Ligation Additional Past Surgical History / Comment(s): C-SEC X 2, D&C AND ENDOMETRIAL ABLATION Past Anesthesia/Blood Transfusion Reactions: No Reported Reaction Past Psychological History: Anxiety, Depression Smoking Status: Never smoker - Past Family History Mother Family Medical History: No Reported History General Exam - General Exam Comments Initial Comments: General: The patient is awake and alert, in no distress, and does not appear acutely ill. Eye: +3 mm pupils are equal, round and reactive to light, extra-ocular movements are intact. No nystagmus. There is normal conjunctiva bilaterally. No signs of icterus. Ears, nose, mouth and throat: There are moist mucous membranes and no oral lesions. Oropharynx mildly erythematous, no tonsillar enlargement exudates or lesion. No stridor, uvula midline. No anterior cervical adenopathy. No evidence of respiratory distress or tripoding. Neck: The neck is supple, there is no tenderness or JVD. No nuchal rigidity, negative Brudzinski and Kernig no evidence of photophobia. Nasal congestion noted. Cardiovascular: There is a regular rate and rhythm. No murmur, rub or gallop is appreciated. Respiratory: Lungs are clear to auscultation, respirations are non-labored, breath sounds are equal. No wheezes, stridor, rales, or rhonchi. Dry cough and exam is no particular characteristic. No abdominal breathing or retractions. No findings on examination concerning for focal consolidation. Gastrointestinal: Soft, non-distended, non-tender abdomen without masses or organomegaly noted. There is no rebound or guarding present. No CVA tenderness. Bowel sounds are unremarkable. Musculoskeletal: Normal ROM, no tenderness. Strength 5/5. Sensation intact. Radial pulses equal bilaterally 2+. Neurological: A&O x 3. CN II-XII intact, There are no obvious motor or sensory deficits. Coordination appears grossly intact. Speech is normal. Skin: Skin is warm and dry and no rashes or lesions are noted. No LE edema. Psychiatric: Cooperative, appropriate mood & affect, normal judgment. Limitations: no limitations Course Vital Signs 12/22/18 12/22/18 18:55 20:05 Temperature 100.5 F H 99.5 F Pulse Rate 115 H 103 H Respiratory 18 16 Rate Blood Pressure 149/92 137/81 O2 Sat by Pulse 98 98 Oximetry Medical Decision Making - Medical Decision Making Nontoxic-appearing 28-year-old female presenting for URI symptoms that began this morning. Patient admits to cough, congestion and fever. Influenza to testing negative. Patient denies sore throat, oropharynx within normal limits. Chest x-ray revealed no focal consolidations. Lung exam unremarkable. Benign abdominal exam no signs of nuchal rigidity or photophobia. Benign abdominal exam. Denies urinary symptoms. Patient febrile, patient given 1 g Tylenol, improvement of temperature, HR trending downward, pt given 1L IVF 0.9NS. At this time feel patient has viral URI. i did explain to patient that she presented early in disease process and to return for any concerning or worsening symptoms. Verbalized understanding. Patient is instructed to take [id number] Tylenol ibuprofen and maintained adequate fluid intake. I did discuss the case with attending Dr. Sanz who is agreeable with patient discharge, no further recommendations. Pt is agreeable with discharge, denied questions and is aware of return parameters. - Lab Data Lab Results 12/22/18 Range/Units 19:30 Influenza Type A RNA Not Detected (Not Detectd) Influenza Type B (PCR) Not Detected (Not Detectd) Disposition Clinical Impression: Viral upper respiratory illness Disposition: HOME SELF-CARE Condition: Good Instructions (If sedation given, give patient instructions): Upper Respiratory Infection in Children (ED) Additional Instructions: Please use medication as discussed. Please follow-up with family doctor in the next 2 days. Please return to emergency room if the symptoms increase or worsen or for any other concerns. Prescriptions: Benzonatate [Tessalon Perles] 100 mg PO TID PRN 5 Days #15 cap PRN Reason: Cough Is patient prescribed a controlled substance at d/c from ED?: No Referrals: Perico Carney III, MD [Primary Care Provider] - 1-2 days Time of Disposition: 20:19
--- NOTE | 2018-12-22 19:21 | XR ---
EXAMINATION TYPE: XR chest 2V DATE OF EXAM: 12/22/2018 COMPARISON: November 12, 2016 HISTORY: Cough and fever TECHNIQUE: Frontal and lateral views of the chest are obtained. FINDINGS: Heart and mediastinum are normal. Lungs are clear. Diaphragm is normal. Bony thorax is int act. IMPRESSION: Normal chest. No change.
[2018-12-22 20:06] VITALS: BP 137/81; PULSE 103; RESP 16; TEMP 99.5
== END 2018-12-22 20:30 | disposition home or self-care (01) ==
LOC: EC 18:53
DX: J06.9 Acute upper respiratory infection, unspecified (principal)
CPT/HCPCS: 71046; 87502; 96360; 99283

== ENCOUNTER → 2019-08-12 | Outpatient (CLI) | payer BC ==
--- NOTE | 2019-08-13 07:21 | US ---
EXAMINATION TYPE: US pelvic complete DATE OF EXAM: 08/12/2019 COMPARISON: US 01/04/2016 CLINICAL HISTORY: R10.2 PELVIC PAIN. Patient having hysterectomy in October due to heavy painful per iods, 5, para 2, miscarriage 3, history of uterine ablation and D&C. TECHNIQUE: Transabdominal sonographic images of the pelvis were acquired. Date of LMP: 08/08/2019 EXAM MEASUREMENTS: Uterus: 12.2 x 3.7 x 4.2 cm Endometrial Stripe: 0.5 cm Right Ovary: 3.5 x 1.9 x 3.2 cm Left Ovary: 2.5 x 1.8 x 2.5 cm 1. Uterus: anteverted, measures large in size, heterogeneous 2. Endometrium: wnl 3. Right Ovary: multiple follicles 4. Left Ovary: multiple follicles Spectral, color and waveform doppler imaging shows good arterial and venous flow within the ovaries ; there is no evidence for ovarian torsion. 5. Bilateral Adnexa: wnl 6. Posterior cul-de-sac: wnl IMPRESSION: Heterogenous myometrium without discrete leiomyoma. Follicular changes of the ovaries are seen that are presumed physiologic. No dominant cyst. No abnormal endometrial thickening.
== END ==
LOC: RADUSWWP 15:38
PROVIDERS: ATTEND Obstetrics & Gynecology
DX: N85.8 Other specified noninflammatory disorders of uterus (principal); R10.2 Pelvic and perineal pain
CPT/HCPCS: 76856

== ENCOUNTER → 2019-09-27 | Outpatient (CLI) | payer BC ==
[2019-09-27 11:27] LABS: Basophils % (A) 0 %; Eosinophils # (A) 0.1 k/uL (0-0.7); Eosinophils % (A) 1 %; HCT 42.7 % (34.0-46.0); HGB 14.9 gm/dL (11.4-16.0); Lymphocytes # (A) 2.7 k/uL (1.0-4.8); Lymphocytes % (A) 27 %; MCH 28.6 pg (25.0-35.0); MCHC 34.9 g/dL (31.0-37.0); Monocytes # (A) 0.7 k/uL (0-1.0); Monocytes % (A) 6 %; Neutrophils # (A) 6.6 k/uL (1.3-7.7); Neutrophils % (A) 64 %; Platelet Count 305 k/uL (150-450); RDW 13.7 % (11.5-15.5); WBC 10.3 k/uL (3.8-10.6)
[2019-09-27 11:29] LABS: African American GFR (CKD) >90 (>60 ml/min/1.73 sqM); Anion Gap 11 mmol/L; Blood Urea Nitrogen 12 mg/dL (7-17); Calcium 9.8 mg/dL (8.4-10.2); Carbon Dioxide 24 mmol/L (22-30); Chloride 106 mmol/L (98-107); Glucose 81 mg/dL (74-99); Non-African American GFR(CKD) >90 (>60 ml/min/1.73 sqM); Potassium 4.5 mmol/L (3.5-5.1); Sodium 141 mmol/L (137-145)
== END | disposition home or self-care (01) ==
LOC: LABPAT 10:33
PROVIDERS: ATTEND Obstetrics & Gynecology
DX: Z01.812 Encounter for preprocedural laboratory examination (principal)
CPT/HCPCS: 36415; 80048; 85025

== ENCOUNTER 2019-10-06 06:07 | Inpatient (IN) | payer BC ==
[2019-09-29 11:50] VITALS: BMI 32.5
--- NOTE | 2019-10-05 18:26 | P.HPOB ---
History of Present Illness H&P Date: 10/05/19 Chief Complaint: Pelvic pain, dysparunia, irregular menses This is a 29 y.o. female 5, para 2, who presents for total abdominal hysterectomy with bilateral salpingectomy, possible bilateral oophorectomy due to pelvic pain, dysparunia, and irregular menses. She has a history of a previous endometrial ablation. Her periods are still painful, but less heavy. She has irregular menses. Menses are occuring every 36-40 days and lasting 4-6 days. She would like definitive surgical treatment. OB History: . History of 2 sections. History of 3 miscarriages. Lens Inspector Hx: History of tubal ligation. History of abnormal pap smears. No history of STDs. Social Hx: . Works for [employer]. Review of Systems Constitutional: Reports fatigue, Denies chills, Denies fever Eyes: denies blurred vision, denies pain Ears, nose, mouth and throat: Denies headache, Denies sore throat Respiratory: Denies cough Gastrointestinal: Reports abdominal pain (intermittent) Genitourinary: Reports dysmenorrhea, Reports dyspareunia, Reports pelvic pain Menstruation: Reports menses variable Musculoskeletal: Denies myalgias Integumentary: Denies pruritus, Denies rash Neurological: Reports numbness Psychiatric: Reports anxiety, Reports change in libido, Reports depression, Reports insomnia Past Medical History Past Medical History: No Reported History, GERD/Reflux Additional Past Medical History / Comment(s): IRREGULAR MENSES WITH BLOOD CLOTS, IBS, abdominal cramping, enlarged uterus History of Any Multi-Drug Resistant Organisms: None Reported Past Surgical History: Section, Orthopedic Surgery, Tubal Ligation, Uterine Ablation Additional Past Surgical History / Comment(s): C-SEC X 2, D&C, 4th toe eric foot surgery Past Anesthesia/Blood Transfusion Reactions: No Reported Reaction Past Psychological History: Anxiety, Depression Smoking Status: Never smoker Past Alcohol Use History: Occasional Past Drug Use History: None Reported - Past Family History Mother Family Medical History: No Reported History Medications and Allergies Home Medications Medication Instructions Recorded Confirmed Type ALPRAZolam [Xanax] 0.25 mg PO BID PRN 09/29/19 10/06/19 History Multivitamins, Thera [Multivitamin 1 tab PO DAILY 09/29/19 10/06/19 History (formulary)] Phentermine HCl [Adipex-P] 37.5 mg PO DAILY 09/29/19 10/06/19 History Allergies Allergy/AdvReac Type Severity Reaction Status Date / Time No Known Allergies Allergy Verified 10/06/19 06:25 Exam Osteopathic Statement: *. No significant issues noted on an osteopathic structural exam other than those noted in the History and Physical/Consult. HEENT within normal limits Heart: regular rate and rhythm Lungs: clear to auscultation Abdomen: soft, non-tender Pelvic: uterus mildly tender, anteverted, no adnexal masses or tenderness Extremities: Negative Homans. Assessment and Plan (1) Pelvic pain Current Visit: No Status: Acute Code(s): R10.2 - PELVIC AND PERINEAL PAIN SNOMED Code(s): 43366817 (2) Dyspareunia Current Visit: No Status: Acute Code(s): QVP8709 - SNOMED Code(s): 25745868 (3) Irregular menses Current Visit: No Status: Acute Code(s): N92.6 - IRREGULAR MENSTRUATION, UNSPECIFIED SNOMED Code(s): 21920998 Plan: Proceed with total abdominal hysterectomy with bilateral salpingectomy, possible bilateral oophorectomy. I have discussed the risks, benefits, and alternative therapies for the above- mentioned procedure and for both sedation/anesthesia as well as necessary blood products administration, if indicated, as they pertain to this patient. The patient has indicated her understanding and acceptance of the risks and procedures discussed.
[~2019-10-06 06:07] MED LIST changes: +DEXAMETHASONE SOD PHOSPHATE 10 MG/ML 1 ML VIAL IV ONE; +HYDROmorphone 0.5 MG/0.5 ML SYRINGE IVP PRN; +ONDANSETRON 4 MG/2 ML VIAL IVP ONE; +SCOPOLAMINE 1.5MG/72HR PATCH TRANSDERM ONE
[2019-10-06] MEDS ORDERED: MIDAZOLAM 2 MG/2 ML VIAL IV ONE (06:52)
[2019-10-06] MEDS ORDERED: fentaNYL (PF) 50 MCG/ML 2 ML AMP IV ONE (06:52)
[2019-10-06] MEDS ORDERED: ONDANSETRON 4 MG/2 ML VIAL IVP PRN (07:06)
[2019-10-06] MEDS ORDERED: HYDROmorphone 0.5 MG/0.5 ML SYRINGE IVP PRN (07:06)
[2019-10-06] MEDS ORDERED: diphenhydrAMINE 50 MG/ML 1 ML VIAL IVP PRN (07:06)
[2019-10-06] MEDS ORDERED: NALOXONE 0.4 MG/ML 1 ML VIAL IV PRN (07:06)
[2019-10-06] MEDS ORDERED: NALBUPHINE 10 MG/ML (1 ML AMP) IV PRN (07:06)
[2019-10-06] MEDS ORDERED: diphenhydrAMINE 50 MG/ML 1 ML VIAL IVP ONE (07:10)
[2019-10-06] MEDS ORDERED: KETAMINE 10 MG/ML 20 ML VIAL ONE (07:23)
[2019-10-06] MEDS ORDERED: PROPOFOL 10 MG/ML 20 ML VIAL IV ONE (07:23)
[2019-10-06] MEDS ORDERED: NEOSTIGMINE 1 MG/ML 10 ML VIAL ONE (07:23)
[2019-10-06] MEDS ORDERED: SUCCINYLCHOLINE CHLORIDE 100 MG/5 ML SYR IV ONE (07:23)
[2019-10-06] MEDS ORDERED: LIDOCAINE 1% INJ 10MG/ML (20 ML MDV) ONE (07:23)
[2019-10-06] MEDS ORDERED: GLYCOPYRROLATE 0.2 MG/ML 2 ML VIAL ONE (07:23)
[2019-10-06] MEDS ORDERED: fentaNYL (PF) 50 MCG/ML 2 ML AMP ONE (07:23)
[2019-10-06] MEDS ORDERED: MORPHINE SULFATE (PF) 0.3 MG/0.3 ML SYR ONE (07:23)
[2019-10-06] MEDS ORDERED: ROCURONIUM BROMIDE 10 MG/ML 10 ML VIAL IV ONE (07:23)
[2019-10-06] MEDS ORDERED: LACTATED RINGERS 1,000 ML IV ONE (08:45)
--- NOTE | 2019-10-06 08:51 | P.OP ---
Date of Procedure: 10/06/19 Preoperative Diagnosis: Pelvic pain Dyspareunia Irregular menses Postoperative Diagnosis: Same Procedure(s) Performed: Total abdominal hysterectomy with bilateral salpingectomy Anesthesia: GETA, spinal (Duramorph) Surgeon: Danita Conrad Job Checker #1: Stevan Jasmine Estimated Blood Loss (ml): 50 Pathology: other (Uterus with cervix, bilateral tubes) Condition: stable Disposition: floor Indications for Procedure: This is a 29 y.o. female 5, para 2, who presents for total abdominal hysterectomy with bilateral salpingectomy, possible bilateral oophorectomy due to pelvic pain, dysparunia, and irregular menses. She has a history of a previous endometrial ablation. Her periods are still painful, but less heavy. She has irregular menses. Menses are occuring every 36-40 days and lasting 4-6 days. She would like definitive surgical treatment. Operative Findings: Uterus appears normal. Both tubes and ovaries appear normal. No adhesions or evidence of endometriosis was noted. Description of Procedure: The patient is taken to the operating room where she is placed in the dorsal supine position. She is prepped and draped in the normal sterile fashion including Quezada catheter insertion and vaginal prep. A Pfannenstiel skin incision is made through the previous laparotomy scar with a scalpel. A second knife was used to carry the incision down to the underlying layer of fascia. Th e fascia was nicked in the midline with a scalpel and then extended laterally bilaterally with Lopez scissors. The superior aspect of the fascial incision was grasped with Jenifer clamps, elevated off the underlying rectus muscle in the midline and then cut with Lopez scissors. The inferior aspect of the fascial incision was grasped with Jenifer clamps, elevated off the underlying rectus muscle in the midline and then cut with Lopez scissors. Next the peritoneum was identified and entered sharply with Lopez scissors. It is extended superiorly and inferiorly with Metzenbaum scissors with good visualization of underlying structures. Next the Lincoln retractor is placed in the bladder blade was inserted. The bowels were packed with a 3 yard laparotomy sponge. Next the uterus is brought up incision and the corneal regions are grasped with Odette clamps on both sides. Next the fallopian tube on the left side is brought up to the incision and the mesosalpinx is clamped with a Priya clamp. This is cut with Lopez scissors and then sutured with 0 Vicryl suture in Priya transfixion stitch. The remaining mesosalpinx is also clamped with a Priya clamp, cut with Lopez scissors, and sutured with 0 Vicryl suture in Priya transfixion stitches. Next the uterine ovarian ligament is clamped with a Priya clamp, cut with Lopez scissors, and then sutured with 0 Vicryl suture in Priya transfixion stitch. The same procedure is carried out on the right side. The uterine arteries are then clamped with Priya clamp on either side. These are cut with Lopez scissors and then sutured with 0 Vicryl suture in Priya transfixion stitches. The vesicouterine peritoneum was sharply dissected away from the bladder with Metzenbaum scissors and pushed inferiorly. Next the cardinal ligaments were c lamped on either side with Priya clamp, cut with Lopez scissors, and sutured with 0 Vicryl suture in Priya transfixion stitches. The uterosacral ligaments are clamped on either side with Priya clamps, cut with Lopez scissors, and sutured with 0 Vicryl suture in Priya transfixion stitches on either side. The edges of the vaginal cuff were clamped on either side with a Priya clamp, cut with Lopez scissors, and sutured with 0 Vicryl suture in Priya transfixion stitches and held on either side. The vaginal mucosa was then cut just below the level of the cervix and the specimen is removed from the field. The edges of the vaginal cuff were held with Jenifer clamps. Next the previously held corners of each side of the vaginal cuff were then whipstitched along the connective tissue on either side and brought through the corner of the cuff and tied. Next the vaginal cuff was sutured with 0 Vicryl suture in a running locked fashion. Hemostasis was noted. Copious irrigation is carried out with warm saline. Excellent hemostasis is noted. All sponges are removed from the abdomen. The peritoneum is then closed with 0 Vicryl suture in a running fashion. The muscle was then reapproximated with 0 Vicryl suture in interrupted fashion. The fascia layer is then closed with 0 PDS suture in a running fashion with the knots buried on either side and in the midline. Next the subcutaneous tissues closed with 2-0 Vicryl suture in a running fashion. The skin is closed with jose martin. All sponge and needle counts are correct and the patient is taken to recovery room in stable condition.
[2019-10-06] MEDS: KETOROLAC 30 MG/ML 1 ML VIAL IVP PRN ×2 (09:42→20:05)
[2019-10-06] MEDS: SENNOSIDES-DOCUSATE SODIUM 1 EACH TAB PO SCH ×2 (10:25→20:05)
[2019-10-06] MEDS ORDERED: SIMETHICONE 80 MG CHEWABLE PO PRN (10:55)
[2019-10-06] MEDS ORDERED: ZOLPIDEM 5 MG TAB PO PRN (10:55)
[2019-10-06] MEDS ORDERED: ALPRAZolam 0.25 MG TAB PO PRN (10:55)
[2019-10-06] MEDS ORDERED: HYDROcodone/APAP 5-325MG 1 EACH TAB PO PRN (10:55)
[2019-10-06] MEDS ORDERED: METOCLOPRAMIDE 5 MG/ML 2 ML VIAL IVP PRN (10:55)
[2019-10-06] MEDS: LACTATED RINGERS 1,000 ML IV SCH ×2 (20:04→20:05)
[2019-10-07] MEDS: LACTATED RINGERS 1,000 ML IV SCH ×2 (00:31→16:29)
[2019-10-07 06:05] LABS: Basophils % (A) 0 %; Eosinophils % (A) 0 %; HCT 34.3 % (34.0-46.0); HGB 12.1 gm/dL (11.4-16.0); Lymphocytes # (A) 2.1 k/uL (1.0-4.8); Lymphocytes % (A) 15 %; MCH 29.2 pg (25.0-35.0); MCHC 35.2 g/dL (31.0-37.0); MCV 82.9 fL (80.0-100.0); Mean Platelet Volume 7.2; Monocytes # (A) 0.9 k/uL (0-1.0); Monocytes % (A) 7 %; Neutrophils # (A) 10.5 k/uL (1.3-7.7); Neutrophils % (A) 76 %; Platelet Count 234 k/uL (150-450); RBC 4.13 m/uL (3.80-5.40); RDW 14.1 % (11.5-15.5); WBC 13.7 k/uL (3.8-10.6)
[2019-10-07] MEDS ORDERED: ACETAMINOPHEN TAB 325 MG TAB PO PRN (07:40)
--- NOTE | 2019-10-07 08:06 | P.PN ---
Subjective Progress Note Date: 10/07/19 Principal diagnosis: Status post HORACE with BS postoperative day #1 Patient is doing okay. She did have some nausea and vomiting last night. Her pain is starting to worsen this morning. She has been ambulating. She is not passing flatus or bowel movement yet. No vaginal bleeding is noted. Objective - Vital Signs Vital signs: Vital Signs Temp 98.2 F 10/06/19 23:46 Pulse 98 10/06/19 23:46 Resp 18 10/06/19 23:46 BP 102/66 10/06/19 23:46 Pulse Ox 100 10/06/19 23:46 Intake & Output 10/06/19 10/07/19 10/07/19 18:59 06:59 18:59 Intake Total 1540 Output Total 445 750 Balance 1095 -750 Weight 86.7 kg Intake: IV 1100 Oral 440 Output: Urine 395 750 Estimated Blood Loss 50 - Constitutional General appearance: Present: no acute distress - Gastrointestinal Gastrointestinal Comment(s): Incision is clean dry and intact with jose martin in place General gastrointestinal: Present: normal bowel sounds, soft - Musculoskeletal Musculoskeletal Comment(s): Negative Homans bilaterally - Labs CBC & Chem 7: 10/07/19 05:24 Labs: Abnormal Lab Results - Last 24 Hours (Table) 10/07/19 Range/Units 05:24 WBC 13.7 H (3.8-10.6) k/uL Neutrophils # 10.5 H (1.3-7.7) k/uL Assessment and Plan Assessment: Status post total abdominal hysterectomy with bilateral salpingectomy postoperative day #1 (1) Pelvic pain Current Visit: No Status: Acute Code(s): R10.2 - PELVIC AND PERINEAL PAIN SNOMED Code(s): 20654981 (2) Dyspareunia Current Visit: No Status: Acute Code(s): NJK3139 - SNOMED Code(s): 95840135 (3) Irregular menses Current Visit: No Status: Acute Code(s): N92.6 - IRREGULAR MENSTRUATION, UNSPECIFIED SNOMED Code(s): 40034299 Plan: Will advance diet after flatus. Encouraged ambulation. Encouraged to ask for pain medication when she needs it.
[2019-10-07] MEDS: IBUPROFEN 600 MG TAB PO PRN ×2 (08:10→13:26)
[2019-10-07] MEDS: SENNOSIDES-DOCUSATE SODIUM 1 EACH TAB PO SCH ×2 (08:27→20:47)
--- NOTE | 2019-10-07 09:52 | P.PN ---
Progress Note - Text 10/07 924am 29-year-old female status post total abdominal hysterectomy. Patient had a spinal Duramorph for postop pain control, she has a VAS of 1. Patient had complains of nausea vomiting and pruritus during the evening. She is doing much better with no complains of nausea vomiting or pruritus this morning
[2019-10-07] MEDS: HYDROcodone/APAP 7.5-325MG 1 EACH TAB PO PRN ×2 (14:52→23:36)
[2019-10-07 23:47] VITALS: BP 128/86; RESP 18; TEMP 99
[2019-10-08] MEDS: LACTATED RINGERS 1,000 ML IV SCH (04:59)
[2019-10-08] MEDS: IBUPROFEN 600 MG TAB PO PRN (06:45)
--- NOTE | 2019-10-08 08:56 | P.DS ---
Providers Date of admission: 10/06/19 06:07 Expected date of discharge: 10/08/19 Attending physician: Danita Conrad Primary care physician: Perico Carney - Discharge Diagnosis(es) (1) Pelvic pain Current Visit: No Status: Acute (2) Dyspareunia Current Visit: No Status: Acute (3) Irregular menses Current Visit: No Status: Acute Hospital Course: This is a 29-year-old female who underwent a total abdominal hysterectomy with bilateral salpingectomy on 10/06/2018. Postoperatively she has done well. She is passing flatus and bowel movement. Minimal bleeding is noted. Her pain is fairly well controlled with ibuprofen and Greenfield. She is tolerating a regular diet and urinating without difficulty. Vital signs are stable. Abdomen is soft with positive bowel sounds 4. Incision is clean dry and intact with jose martin in place. Extremities show negative Homans. Impression is status post total abdominal hysterectomy with bilateral salpingectomy postoperative day #2. Plan is to discharge home today. Routine postoperative and instructions are given. She will be given a prescription for ibuprofen and Greenfield. She has signed a opioid start talking form and denies any use of narcotics at home. She was counseled regarding opioid use. She is advised follow-up in the office in 1 week for a postoperative check. She is advised to call the office if she has any further questions or concerns prior to her appointment time. She is advised no heavy lifting. She may shower but no tub baths. She is advised to call the office if she has any further questions or concerns prior to her appointment time. Procedures: Total abdominal hysterectomy with bilateral salpingectomy on 10/06/2019 Patient Condition at Discharge: Stable Plan - Discharge Summary Discharge Rx Participant: Yes New Discharge Prescriptions: New Ibuprofen [Motrin] 600 mg PO Q6HR PRN #60 tab PRN Reason: Mild Discomfort HYDROcodone/APAP 5-325MG [Greenfield 5-325] 1 each PO Q6HR PRN #30 tab PRN Reason: Moderate Pain Continue Phentermine HCl [Adipex-P] 37.5 mg PO DAILY Multivitamins, Thera [Multivitamin (formulary)] 1 tab PO DAILY ALPRAZolam [Xanax] 0.25 mg PO BID PRN PRN Reason: Anxiety Discharge Medication List ALPRAZolam [Xanax] 0.25 mg PO BID PRN 09/29/19 [History] Multivitamins, Thera [Multivitamin (formulary)] 1 tab PO DAILY 09/29/19 [History] Phentermine HCl [Adipex-P] 37.5 mg PO DAILY 09/29/19 [History] HYDROcodone/APAP 5-325MG [Greenfield 5-325] 1 each PO Q6HR PRN #30 tab 10/08/19 [Rx] Ibuprofen [Motrin] 600 mg PO Q6HR PRN #60 tab 10/08/19 [Rx] Follow up Appointment(s)/Referral(s): Danita Conrad DO [Doctor of Osteopathic Medicine] - 1 Week Activity/Diet/Wound Care/Special Instructions: Activity as tolerated. Diet as tolerated. May shower, but no tub baths for 1 week. No intercourse for 6 weeks. No heavy lifting. Discharge Disposition: HOME SELF-CARE
[2019-10-08] MEDS: SENNOSIDES-DOCUSATE SODIUM 1 EACH TAB PO SCH (10:41)
[2019-10-08 10:52] VITALS: PULSE 88
== END 2019-10-08 10:52 | disposition home or self-care (01) | DRG 743 ==
LOC: 2ORMAIN 06:07 → 4FBP 09:11 → 6PED 10-07 15:56
PROVIDERS: ADMIT Obstetrics & Gynecology; ATTEND Obstetrics & Gynecology
PROC: 0UT70ZZ Resection of Bilateral Fallopian Tubes, Open Approach (ICD-10-PCS; 2019-10-06)
PROC: 0UT90ZZ Resection of Uterus, Open Approach (ICD-10-PCS; principal; 2019-10-06 07:30)
DX: N94.10 Unspecified dyspareunia (principal); N92.6 Irregular menstruation, unspecified; L29.9 Pruritus, unspecified; F41.9 Anxiety disorder, unspecified; F32.9 Major depressive disorder, single episode, unspecified; K58.9 Irritable bowel syndrome, unspecified; N85.2 Hypertrophy of uterus; R11.2 Nausea with vomiting, unspecified; R10.2 Pelvic and perineal pain; K21.9 Gastro-esophageal reflux disease without esophagitis; Z98.51 Tubal ligation status; Z98.891 History of uterine scar from previous surgery; Z79.899 Other long term (current) drug therapy
CPT/HCPCS: 81025; 85025; 86850; 86900; 86901; 88307

== ENCOUNTER → 2020-08-19 | Outpatient (CLI) | payer BC | END | disposition home or self-care (01) | LOC: LABWHC1 08:59 | PROVIDERS: ATTEND Family Medicine | DX: Z20.828 Contact with and (suspected) exposure to other viral communicable diseases (principal) | CPT/HCPCS: U0003; C9803 ==

== ENCOUNTER 2024-04-30 22:32 | Emergency (ER) | payer BC ==
[2024-04-30 22:38] VITALS: PULSE 90; TEMP 98.2
--- NOTE | 2024-04-30 23:08 | ED ---
Skin/Abscess/FB HPI - General Chief complaint: Skin/Abscess/Foreign Body Stated complaint: Rt Leg Wound Time Seen by Provider: 04/30/24 22:50 Source: patient Mode of arrival: ambulatory Limitations: no limitations - History of Present Illness Initial comments: 34-year-old female presenting with chief complaint of infection to the right lower leg. She noticed an ingrown hair on the right lower leg about 2 days ago. She attempted to squeeze and drain the area, and it has since enlarged and become more red and tender. She is having no fevers. No red streaking up the leg. The local area is somewhat swollen, no swelling to the entire lower leg. - Related Data Home Medications Medication Instructions Recorded Confirmed ALPRAZolam [Xanax] 0.25 mg PO BID PRN 09/29/19 10/06/19 Multivitamins, Thera [Multivitamin 1 tab PO DAILY 09/29/19 10/06/19 (formulary)] Phentermine HCl [Adipex-P] 37.5 mg PO DAILY 09/29/19 10/06/19 Previous Rx's Medication Instructions Recorded HYDROcodone/APAP 5-325MG [Udall 1 each PO Q6HR PRN #30 tab 10/08/19 5-325] Ibuprofen [Motrin] 600 mg PO Q6HR PRN #30 tab 10/08/19 Ibuprofen [Motrin] 600 mg PO Q6HR PRN #60 tab 10/08/19 Cephalexin [Keflex] 500 mg PO Q6HR 7 Days #28 cap 04/30/24 Sulfamethox-Tmp 800-160Mg [Bactrim 1 tab PO Q12HR 7 Days #14 tab 04/30/24 DS 800-160 mg] Allergies Allergy/AdvReac Type Severity Reaction Status Date / Time No Known Allergies Allergy Verified 10/06/19 06:25 Review of Systems ROS Statement: Those systems with pertinent positive or pertinent negative responses have been documented in the HPI. ROS Other: All systems not noted in ROS Statement are negative. Past Medical History Past Medical History: No Reported History Additional Past Medical History / Comment(s): IRREGULAR MENSES WITH BLOOD CLOTS History of Any Multi-Drug Resistant Organisms: None Reported Past Surgical History: Section, Tubal Ligation Additional Past Surgical History / Comment(s): C-SEC X 2, D&C AND ENDOMETRIAL ABLATION Past Anesthesia/Blood Transfusion Reactions: No Reported Reaction Past Psychological History: Anxiety, Depression Past Alcohol Use History: Rare - Past Family History Mother Family Medical History: No Reported History General Exam Limitations: no limitations General appearance: alert, in no apparent distress Head exam: Present: atraumatic, normocephalic Eye exam: Present: normal appearance, EOMI Neck exam: Present: normal inspection. Absent: meningismus Respiratory exam: Absent: respiratory distress Cardiovascular Exam: Present: regular rate Neurological exam: Present: alert, oriented X3 Psychiatric exam: Present: normal affect, normal mood Skin exam: Present: erythema (Erythema and induration, about quarter sized to the right lower leg) Course Vital Signs 04/30/24 04/30/24 22:35 23:33 Temperature 98.2 F Pulse Rate 90 90 Respiratory 16 18 Rate Blood Pressure 135/87 114/74 O2 Sat by Pulse 98 98 Oximetry Medical Decision Making - Medical Decision Making Was pt. sent in by a medical professional or institution (, PA, AUTOMOTIVE WARRANTY ADMINISTRATOR, urgent care, hospital, or intermediate...) When possible be specific @ -No Did you speak to anyone other than the patient for history (EMS, parent, family, police, friend...)? What history was obtained from this source @ -No Did you review nursing and triage notes (agree or disagree)? Why? @ -I reviewed and agree with nursing and triage notes Were old charts reviewed (outside hosp., previous admission, EMS record, old EKG, old radiological studies, urgent care reports/EKG's, intermediate records)? Report findings @ -No old charts were reviewed Differential Diagnosis (chest pain, altered mental status, abdominal pain women, abdominal pain men, vaginal bleeding, weakness, fever, dyspnea, syncope, headache, dizziness, GI bleed, back pain, seizure, CVA, palpatations, mental health, musculoskeletal)? @ -Differential includes cellulitis, abscess, allergic reaction, this is not an all-inclusive list EKG interpreted by me (3pts min.). @ -As above X-rays interpreted by me (1pt min.). @ -None done CT interpreted by me (1pt min.). @ -None done U/S interpreted by me (1pt. min.). @ -None done What testing was considered but not performed or refused? (CT, X-rays, U/S, labs)? Why? @ -None What meds were considered but not given or refused? Why? @ -None Did you discuss the management of the patient with other professionals (professionals i.e. , PA, AUTOMOTIVE WARRANTY ADMINISTRATOR, lab, RT, psych nurse, geriatric social work professor, hvac field service technician, teacher, project officer, rifle case repairer)? Give summary @ -No Was smoking cessation discussed for >3mins.? @ -No Was critical care preformed (if so, how long)? @ -No Were there social determinants of health that impacted care today? How? (Homelessness, low income, unemployed, alcoholism, drug addiction, transportation, low edu. Level, literacy, decrease access to med. care, correction, rehab)? @ -No Was there de-escalation of care discussed even if they declined (Discuss DNR or withdrawal of care, Hospice)? DNR status @ -No What co-morbidities impacted this encounter? (DM, HTN, Smoking, COPD, CAD, Cancer, CVA, ARF, Chemo, Hep., AIDS, mental health diagnosis, sleep apnea, morbid obesity)? @ -None Was patient admitted / discharged? Hospital course, mention meds given and route, prescriptions, significant lab abnormalities, going to OR and other p ertinent info. @ -34-year-old female presenting with chief complaint of redness and tenderness to right lower leg. This started out as an ingrown hair and has worsened over the last 2 days. No fevers or red streaking up the leg. Patient will be placed on Keflex and Bactrim and provided with bacitracin for the site. Discharged home. Follow-up with PCP. Report back to ER with any new or worsening symptoms. Discussed return parameters and answered all questions. Patient conveyed verbal understanding and agreed to the plan. I discussed this case in detail with my attending Dr. Sunshine Undiagnosed new problem with uncertain prognosis? @ -No Drug Therapy requiring intensive monitoring for toxicity (Heparin, Nitro, Insulin, Cardizem)? @ -No Were any procedures done? @ -No Diagnosis/symptom? @ -Cellulitis Acute, or Chronic, or Acute on Chronic? @ -Acute Uncomplicated (without systemic symptoms) or Complicated (systemic symptoms)? @ -Uncomplicated Side effects of treatment? @ -No Exacerbation, Progression, or Severe Exacerbation? @ -No Poses a threat to life or bodily function? How? (Chest pain, [place], [place], pneumonia, PE, COPD, DKA, ARF, appy, cholecystitis, CVA, Diverticulitis, Homicidal, Suicidal, threat to staff... and all critical care pts) @ -Unlikely Disposition Clinical Impression: Cellulitis Disposition: HOME SELF-CARE Condition: Good Instructions (If sedation given, give patient instructions): Cellulitis (ED) Additional Instructions: Follow-up with PCP. Report back to ER with any new or worsening symptoms. Apply bacitracin twice daily until symptoms resolved. Prescriptions: Sulfamethox-Tmp 800-160Mg [Bactrim DS 800-160 mg] 1 tab PO Q12HR 7 Days #14 tab Cephalexin [Keflex] 500 mg PO Q6HR 7 Days #28 cap Is patient prescribed a controlled substance at d/c from ED?: No Referrals: Dakota Hernandez DO [Primary Care Provider] - 1-2 days Time of Disposition: 23:08
[2024-04-30] MEDS: CEPHALEXIN 500 MG CAP PO STA (23:20)
[2024-04-30] MEDS: SULFAMETHOX-TMP 800-160MG 1 EACH TAB PO STA (23:20)
[2024-04-30] MEDS: BACITRACIN ZINC 500 UNIT/GM OINT 28.4 GM TUBE TOPICAL ONE (23:29)
[2024-04-30 23:34] VITALS: BP 114/74; RESP 18
== END 2024-04-30 23:34 | disposition home or self-care (01) ==
LOC: EC 22:32
DX: L03.115 Cellulitis of right lower limb (principal)
CPT/HCPCS: 87070; 87077; 87186; 87205; 99282; 99283

== ENCOUNTER → 2024-07-11 | Outpatient (CLI) | payer BC ==
--- NOTE | 2024-07-12 09:37 | US ---
EXAMINATION TYPE: US pelvic complete DATE OF EXAM: 07/11/2024 COMPARISON: 08/12/2019 CLINICAL INDICATION: Female, 34 years old with history of N83.201 ovarian cyst right side; hysterecto my 2019, Rt cyst outside imaging 6-8 weeks ago per pt. TECHNIQUE: Transabdominal (TA). Transabdominal sonographic images of the pelvis were acquired Date of LMP: hysterectomy 2019 EXAM MEASUREMENTS: Uterus: Surgically absent Endometrial Stripe: Surgically absent Right Ovary: 3.8x1.4x2.5 cm Left Ovary: 4.9x1.6x1.8 cm 1. Uterus: Surgically absent 2. Endometrium: Surgically absent 3. Right Ovary: wnl 4. Left Ovary: wnl 5. Bilateral Adnexa: Obscured by overlying bowel gas 6. Posterior cul-de-sac: wnl no ovarian cyst visualized on todays exam IMPRESSION: No organizing fluid collection or mass. No acute process.
== END | disposition home or self-care (01) ==
LOC: RADUSWWP 16:00
PROVIDERS: ATTEND Family Medicine
DX: N83.201 Unspecified ovarian cyst, right side (principal)
CPT/HCPCS: 76856

== ENCOUNTER → 2024-08-27 | Outpatient (CLI) | payer BC ==
[2024-08-27 10:50] LABS: Basophils # (A) 0.07 X 10*3/uL (0.00-0.10); Basophils % (A) 0.7 %; Eosinophils # (A) 0.17 X 10*3/uL (0.04-0.35); Eosinophils % (A) 1.6 %; HCT 41.7 % (37.2-46.3); HGB 14.1 g/dL (12.0-15.0); Lymphocytes # (A) 1.95 X 10*3/uL (0.90-5.00); Lymphocytes % (A) 18.2 %; MCHC 33.8 g/dL (32.0-37.0); MCV 82.7 FL (80.0-97.0); Mean Platelet Volume 10.6 FL (9.5-12.2); Monocytes % (A) 9.3 %; NRBC Per 100 WBC 0 X 10*3/uL (0.00-0.01); Neutrophils % (A) 69.8 %; Platelet Count 289 X 10*3/uL (140-440); RBC 5.04 X 10*6/uL (4.10-5.20); RDW 14.5 % (11.5-14.5); WBC 10.73 X 10*3/uL (4.50-10.00)
[2024-08-27 11:03] LABS: DHEA Sulfate 93.8 UG/DL (39.0-800.0)
[2024-08-27 11:10] LABS: ALT 28 U/L (8-44); AST 21 U/L (13-35); Albumin 4.3 g/dL (3.8-4.9); Albumin/Globulin Ratio 1.48 Ratio (1.60-3.17); Alkaline Phosphatase 66 U/L (41-126); BUN/Creat Ratio 11.22 Ratio (12.00-20.00); Blood Urea Nitrogen 10.1 mg/dL (9.0-27.0); Calcium 9.6 mg/dL (8.7-10.3); Chloride 104 mmol/L (96-109); Globulin 2.9 g/dL (1.6-3.3); Glucose 96 mg/dL (70-110); Iron 80 UG/DL (50-170); Potassium 4.4 mmol/L (3.5-5.5); Sodium 140 mmol/L (135-145); T4, Free (Free Thyroxine) 1.05 ng/dL (0.80-1.80); Total Bilirubin 0.6 mg/dL (0.3-1.2); Total Protein 7.2 g/dL (6.2-8.2)
[2024-08-27 11:35] LABS: Follicle Stimulating Hormone 4.4 mIU/mL; Luteinizing Hormone 8.2 mIU/mL; Progesterone 0.3 ng/mL
== END ==
LOC: LABWHC1 07:47
PROVIDERS: ATTEND Nurse Practitioner Family
CPT/HCPCS: 36415; 80053; 82306; 82607; 82627; 82670; 83001; 83002; 83540; 84144; 84270; 84403; 84439; 84443; 84480; 85025